=== PATIENT | male | born 1990 | race Caucasian/White ===

== ENCOUNTER 2020-06-09 05:59 | Emergency (ER) | payer OTHER ==
--- NOTE | 2020-06-09 06:20 | EDM.PDOC ---
ED HPI GENERAL MEDICAL PROBLEM - General Chief Complaint: General Stated Complaint: COUGH AND RUNNING NOSE Time Seen by Provider: 06/09/20 06:09 - History of Present Illness INITIAL COMMENTS - FREE TEXT/NARRATIVE: HISTORY AND PHYSICAL: History of present illness: This 30-year-old gentleman with no significant past medical history presents ER today secondary to cough, congestion, rhinorrhea. Patient denies any fevers, shakes, chills, nausea, vomiting, diarrhea, sore throat, ear pain. Patient reports that his and cousin whom he lives with both been diagnosed with coronavirus. Patient reports that the quarantine is post and today. Patient denies any chest pain, shortness of breath, abdominal pain. Patient reports has been taking NyQuil and DayQuil without any significant relief in his symptoms. Patient denies any history of hypertension, diabetes, liver, lung, kidney problems. Patient denies any tobacco, alcohol, drugs. Patient has no known drug allergies. Patient has not had his influenza shot this year. Review of systems: As per history of present illness and below otherwise all systems reviewed and negative. Past medical history: As per history of present illness and as reviewed below otherwise noncontributory. Surgical history: As per history of present illness and as reviewed below otherwise noncontributory. Social history: No reported history of drug or alcohol abuse. Family history: As per history of present illness and as reviewed below otherwise noncontributory. Physical exam: HEENT: Atraumatic, normocephalic, pupils reactive, negative for conjunctival pallor or scleral icterus, mucous membranes moist, throat clear, neck supple, nontender, trachea midline. Lungs: Clear to auscultation, breath sounds equal bilaterally, chest nontender. Heart: S1S2, regular, negative for clicks, rubs, or JVD. Abdomen: Soft, nondistended, nontender. Negative for masses or hepatosplenomegaly. Negative for costovertebral tenderness. Pelvis: Stable nontender. Genitourinary: Deferred. Rectal: Deferred. Extremities: Atraumatic, negative for cords or calf pain. Neurovascular unremarkable. Neuro: Awake, alert, oriented. Cranial nerves II through XII unremarkable. Cerebellum unremarkable. Motor and sensory unremarkable throughout. Exam nonfocal. Diagnostics: Pulse ox equals 97% on room air: Normal Chest Xray: Normal cardiac silhouette No infiltrates or effusions identified. No PTX No evidence of acute bony fracture. As interpreted by ER MD: Fuad Coronavirus: Assessment and plan: 30-year-old gentleman with significant coronavirus exposure presents ER today with concern regarding cough, congestion and possible coronavirus infection. Patient's pulse ox is 97% on room air. We will obtain a coronavirus test for the patient and obtain a chest x-ray. Patient appears to be clinically hemodynamically stable and will not meet criteria for inpatient treatment even if his coronavirus test is positive however this will assist patient with quarantining information. Patient's coronavirus test was positive. 1. Your COVID-19 screening is positive. That means you do have the coronavirus and you are considered contagious. Your vital signs and oxygen saturation are well enough that you were able to monitor your symptoms at home. Continue to monitor for trouble breathing, new confusion or inability to arouse, bluish lips or face or any of the other symptoms we discussed -if this occurs please return to the emergency room. 2. Please self quarantine over the next 10 days. Inform any persons that you have been in contact with since you started becoming symptomatic that you have tested positive; they should be made aware and take the appropriate steps as needed. 3. You can take NyQuil during the evening to help get a restful night sleep. May alternate Tylenol and ibuprofen as needed for pain and fever management. 4. The [facility] department will be calling you and following up with you. The [place] COVID 19 Hotline phone number , They are open Wednesday - Wednesday 7am - 7pm. Follow up with your primary care provider for re-evaluation and re-testing after the 10 day quarantine and discuss when you should be seen. Reassessment at the time of disposition demonstrates that the patient is in no acute distress. The patient has remained stable throughout the entire ED visit and is without objective evidence for acute process requiring urgent interventi on or hospitalization. The patient is stable for discharge, counseling is provided as documented above, discussed symptomatic treatment and specific conditions for return. I have spoken with the patient/caregiver and discussed todays findings, in addition to providing specific details for the plan of care. Questions are answered and there is agreement with the plan. Definitive disposition and diagnosis as appropriate pending reevaluation and review of above. - Related Data Allergies Allergy/AdvReac Type Severity Reaction Status Date / Time No Known Allergies Allergy Verified 06/09/20 06:13 Home Meds: Home Meds . [No Known Home Meds] 06/09/20 [History] Past Medical History - Past Health History Medical/Surgical History: Denies Medical/Surgical History ED ROS GENERAL - Review of Systems Review Of Systems: See Below ED EXAM, GENERAL - Physical Exam Exam: See Below Course - Vital Signs Last Recorded V/S: Last Vital Signs Temp 97.3 F 06/09/20 06:14 Pulse 68 06/09/20 06:14 Resp 16 06/09/20 06:14 BP 129/93 H 06/09/20 06:14 Pulse Ox 96 06/09/20 06:14 - Orders/Labs/Meds Orders: Active Orders 24 hr Category Date Time Status CORONAVIRUS COVID-19 PCR [facility] Stat Lab 06/09/20 06:30 Ordered Labs: Laboratory Tests 06/09/20 Range/Units 06:20 SARS CoV-2 RNA Rapid ASA POSITIVE H (NEGATIVE) Departure - Departure Time of Disposition: 06:57 Disposition: Home, Self-Care 01 Condition: Good Clinical Impression: COVID-19 - Discharge Information Instructions: COVID-19 Frequently Asked Questions, COVID-19, COVID-19: How to Protect Yourself and Others - CDC, Prevent the Spread of COVID-19 if You Are Sick - [facility] Referrals: PCP,None [Primary Care Provider] - Forms: ED Department Discharge Additional Instructions: 1. Your COVID-19 screening is positive. That means you do have the coronavirus and you are considered contagious. Your vital signs and oxygen saturation are well enough that you were able to monitor your symptoms at home. Continue to monitor for trouble breathing, new confusion or inability to arouse, bluish lips or face or any of the other symptoms we discussed -if this occurs please return to the emergency room. 2. Please self quarantine over the next 10 days. Inform any persons that you have been in contact with since you started becoming symptomatic that you have tested positive; they should be made aware and take the appropriate steps as needed. 3. You can take NyQuil during the evening to help get a restful night sleep. May alternate Tylenol and ibuprofen as needed for pain and fever management. 4. The [facility] department will be calling you and following up with you. The [place] COVID 19 Hotline phone number , They are open Wednesday - Wednesday 7am - 7pm. Follow up with your primary care provider for re-evaluation and re-testing after the 10 day quarantine and discuss when you should be seen. The following information is given to patients seen in the emergency department who are being discharged to home. This information is to outline your options for follow-up care. We provide all patients seen in our emergency department with a follow-up referral. The need for follow-up, as well as the timing and circumstances, are variable depending upon the specifics of your emergency department visit. If you don't have a primary care physician on staff, we will provide you with a referral. We always advise you to contact your personal physician following an emergency department visit to inform them of the circumstance of the visit and for follow-up with them and/or the need for any referrals to a consulting specialist. The emergency department will also refer you to a specialist when appropriate. This referral assures that you have the opportunity for follow-up care with a specialist. All of these measure are taken in an effort to provide you with optimal care, which includes your follow-up. Under all circumstances we always encourage you to contact your private physician who remains a resource for coordinating your care. When calling for follow-up care, please make the office aware that this follow-up is from your recent emergency room visit. If for any reason you are refused follow-up, please contact the [facility] Emergency Department at and asked to speak to the emergency department charge nurse. [facility] - Primary Care [address] [place] [id number] [id number] Sepsis Event Note (ED) - Evaluation Sepsis Screening Result: No Definite Risk - Focused Exam Vital Signs: Vital Signs Temp Pulse Resp BP Pulse Ox 06/09/20 06:14 97.3 F 68 16 129/93 H 96 - My Orders Last 24 Hours: My Active Orders 06/09/20 06:30 CORONAVIRUS COVID-19 PCR [facility] Stat - Assessment/Plan Last 24 Hours: My Active Orders 06/09/20 06:30 CORONAVIRUS COVID-19 PCR [facility] Stat
== END 2020-06-09 07:21 | disposition home or self-care (01) ==
LOC: MW.ED 05:59
DX: U07.1 COVID-19 (principal)
CPT/HCPCS: 99282; 99283; U0002